=== PATIENT | female | born 1955 | race Two or more races ===

== ENCOUNTER 2020-05-06 09:45 | Outpatient (REF) | payer OTHER, SELFPAY | END 2020-05-06 09:46 | disposition home or self-care (01) | LOC: HO.BBR 09:45 | PROVIDERS: Visit Provider Internal Medicine Hematology & Oncology | DX: Z13.89 Encounter for screening for other disorder (principal) ==

== ENCOUNTER 2020-06-07 09:51 | Outpatient (REF) | payer OTHER, SELFPAY | END 2020-06-07 09:52 | disposition home or self-care (01) | LOC: HO.BBR 09:51 | PROVIDERS: Visit Provider Internal Medicine Hematology & Oncology | DX: Z13.89 Encounter for screening for other disorder (principal) ==

== ENCOUNTER 2020-07-06 09:44 | Outpatient (REF) | payer OTHER, MEDICARE, SELFPAY | END 2020-07-06 09:45 | disposition home or self-care (01) | LOC: HO.BBR 09:44 | PROVIDERS: Visit Provider Internal Medicine Hematology & Oncology | DX: Z13.89 Encounter for screening for other disorder (principal) ==

== ENCOUNTER 2020-08-04 09:46 | Outpatient (REF) | payer MEDICARE, MEDICAID, SELFPAY | END 2020-08-04 09:47 | disposition home or self-care (01) | LOC: HO.BBR 09:46 | PROVIDERS: Visit Provider Internal Medicine Hematology & Oncology | DX: Z13.89 Encounter for screening for other disorder (principal) ==

== ENCOUNTER 2020-09-03 09:47 | Outpatient (REF) | payer MEDICARE, MEDICAID, SELFPAY | END 2020-09-03 09:48 | disposition home or self-care (01) | LOC: HO.BBR 09:47 | PROVIDERS: Visit Provider Internal Medicine Hematology & Oncology | DX: Z13.89 Encounter for screening for other disorder (principal) ==

== ENCOUNTER 2020-10-07 09:52 | Outpatient (REF) | payer MEDICARE, MEDICAID, SELFPAY | END 2020-10-07 09:53 | disposition home or self-care (01) | LOC: HO.BBR 09:52 | PROVIDERS: Visit Provider Internal Medicine Hematology & Oncology | DX: Z13.89 Encounter for screening for other disorder (principal) ==

== ENCOUNTER 2020-11-11 10:03 | Outpatient (REF) | payer MEDICARE, MEDICAID, SELFPAY | END 2020-11-11 10:04 | disposition home or self-care (01) | LOC: HO.BBR 10:03 | PROVIDERS: Visit Provider Internal Medicine Hematology & Oncology | DX: Z13.89 Encounter for screening for other disorder (principal) ==

== ENCOUNTER 2020-12-02 10:59 | Outpatient (REF) | payer MEDICARE, MEDICAID, SELFPAY | END 2020-12-02 11:00 | disposition home or self-care (01) | LOC: HO.BBR 10:59 | PROVIDERS: Visit Provider Internal Medicine Hematology & Oncology | DX: Z13.89 Encounter for screening for other disorder (principal) ==

== ENCOUNTER 2021-01-04 11:03 | Outpatient (REF) | payer MEDICARE, MEDICAID, SELFPAY | END 2021-01-04 11:04 | disposition home or self-care (01) | LOC: HO.BBR 11:03 | PROVIDERS: Visit Provider Internal Medicine Hematology & Oncology | DX: Z13.89 Encounter for screening for other disorder (principal) ==